=== PATIENT | male | born 1950 | race Caucasian/White ===

== ENCOUNTER 2018-10-08 17:59 | Inpatient (IN) | payer MEDICARE, OTHER ==
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
[2018-10-08] MEDS ORDERED: Heparin for STEMI(*) 5,000 UNITS/ML 1 ML VIAL IV ONE (18:11)
[2018-10-08] MEDS ORDERED: Aspirin 81 mg CHEW TAB* 81 MG TAB.CHEW ONE (18:29)
[2018-10-08] MEDS ORDERED: Norepinephrine VIAL* 8 MG in NS 0.9% 500 ML* 492 ML IV ONE (19:00)
[2018-10-08] MEDS ORDERED: EPINEPHrine 4 mg/1000 mL Drip (using amps) dosed in mcg/min IV SCH ×2 (19:00→21:00)
[2018-10-08] MEDS ORDERED: Vasopressin* 100 UNITS in D5W 250 ML BAG* 245 ML IV SCH (19:30)
[2018-10-08] MEDS ORDERED: Vasopressin* 100 UNITS in D5W 250 ML BAG IV ONE (19:30)
[2018-10-08] MEDS ORDERED: EPINEPHrine,Rac 2.25% NEB.SOL* 0.5 ML ONE (19:52)
[2018-10-08] MEDS ORDERED: EPINEPHrine,Rac 2.25% NEB.SOL* 0.5 ML INH PRN (19:59)
[2018-10-08 20:08] LABS: ABS Basophils 0.1 10^3/ul (0-0.2); ABS Eosinophils 0.1 10^3/ul (0-0.6); ABS Lymphocytes 4.6 10^3/ul (1.0-4.8); ABS Monocytes 0.4 10^3/ul (0-0.8); ABS Neutrophils 8.9 10^3/ul (1.5-7.7); Eosinophil % 0.8 %; Hematocrit 25 % (42-52); Hemoglobin 7.7 g/dL (14.0-18.0); Lymphocyte % 32.8 %; Mean Corpuscular HGB Conc 31 g/dL (31-36); Mean Corpuscular Hemoglobin 31 pg (27-31); Mean Corpuscular Volume 99 fL (80-94); Mean Platelet Volume 8.4 fL (7.4-10.4); Nucleated Red Blood Cells % 0.2; Platelet Count 125 10^3/uL (150-450); Red Blood Count 2.52 10^6 /uL (4.18-5.48); Red Cell Distribution Width 15 % (10-15)
[2018-10-08 20:10] VITALS: BP 58/38
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
[2018-10-08 20:17] LABS: Alkaline Phosphatase 101 U/L (34-104); BUN/Creatinine Ratio 9.2 (8-20); Blood Urea Nitrogen 16 mg/dL (6-24); CO2 Carbon Dioxide 15 mmol/L (22-32); Chloride 107 mmol/L (101-111); EGFR African American 47.7 (>60); EGFR Non-African American 39.5 (>60); Sodium 134 mmol/L (135-145)
[2018-10-08 20:18] LABS: Glucose 652 mg/dL (70-100)
[2018-10-08] MEDS ORDERED: VASOPRESSIN 20 UNITS/ML 1 ML VIAL ONE (20:18)
[2018-10-08 20:19] LABS: Albumin 1.5 g/dL (3.2-5.2); Anion Gap 12 mmol/L (2-11); Calcium 5.8 mg/dL (8.6-10.3); Potassium 3.6 mmol/L (3.5-5.0)
[2018-10-08] MEDS ORDERED: Sodium Bicarbonate 8.4% IV* 50 ML VIAL ONE (20:19)
[2018-10-08] MEDS ORDERED: ALBUMIN HUMAN 25% IV ONE (20:19)
[2018-10-08] MEDS ORDERED: EPINEPHrine SYR 0.1MG/ML* SYRINGE ONE (20:19)
[2018-10-08 20:20] LABS: AST 653 U/L (13-39); Globulin 1.5 g/dL (2-4); Total Protein < 3.0 g/dL (6.4-8.9)
[2018-10-08] MEDS ORDERED: Calcium CHLORIDE 10% SYRINGE* 1 GM/10 ML ONE (20:20)
[2018-10-08] MEDS ORDERED: Albumin Human 25%* 12.5 GM/50 ML BTL IV ONE (20:20)
[2018-10-08 20:23] LABS: CKMB ng/mL 139.3 ng/mL (0.6-6.3)
[2018-10-08 20:28] LABS: Troponin I 20.07 ng/mL (<0.04)
[2018-10-08] MEDS ORDERED: Protamine Sulfate* 50 MG in NS 0.9% 50 ML* 50 ML IV ONE (20:30)
[2018-10-08 20:44] LABS: ALT 626 U/L (7-52); Creatine Kinase 2455 U/L (10-223)
[2018-10-08 20:51] LABS: Schistocytes PRESENT
[2018-10-08 20:52] LABS: Platelet Count 124 10^3/ul (150-450)
[2018-10-11 14:28] LABS: Activated Partial Thrombo Time >240.0 seconds (26.0-38.0); INR >10.00 (0.82-1.09)
== END 2018-10-08 20:45 | disposition expired | DRG 298 ==
LOC: ED 17:59 → ICU 18:54
PROVIDERS: ADMIT Internal Medicine; ATTEND Internal Medicine Pulmonary Disease
PROC: 5A1935Z Respiratory Ventilation, Less than 24 Consecutive Hours (ICD-10-PCS; principal; 2018-10-08)
PROC: 05HM33Z Insertion of Infusion Device into Right Internal Jugular Vein, Percutaneous Approach (ICD-10-PCS; 2018-10-08)
PROC: B543ZZA Ultrasonography of Right Jugular Veins, Guidance (ICD-10-PCS; 2018-10-08)
DX: I46.9 Cardiac arrest, cause unspecified (principal); I25.10 Atherosclerotic heart disease of native coronary artery without angina pectoris; Z51.5 Encounter for palliative care; Z79.899 Other long term (current) drug therapy
CPT/HCPCS: 36415; 71045; 80053; 82550; 82553; 82803; 83605; 84484; 85025; 85049; 85362; 85384; 85610; 85730; 86850; 86900; 86901; 86922; 93005; 94640; 99285; A9270-GY; J0171; J1644; J2250; J2720; J3010; P9047; Q9967